=== PATIENT | female | born 1995 | race Caucasian/White ===

== ENCOUNTER → 2020-08-07 09:59 | Outpatient (BNVA) | payer MEDICARE, MEDICAID, SELFPAY | PROVIDERS: Family Provider Nurse Practitioner Family; PCP Nurse Practitioner Family; Visit Provider Registered Nurse | DX: Z34.90 Encounter for supervision of normal pregnancy, unspecified, unspecified trimester (principal) | CPT/HCPCS: 81025 ==

== ENCOUNTER → 2020-08-29 13:21 | Outpatient (BNVA) | payer MEDICARE, MEDICAID, SELFPAY | PROVIDERS: Family Provider Nurse Practitioner Family; PCP Nurse Practitioner Family; Visit Provider Nurse Practitioner Women's Health | DX: Z34.01 Encounter for supervision of normal first pregnancy, first trimester (principal) | CPT/HCPCS: 84315; 84702 ==

== ENCOUNTER → 2020-09-15 08:59 | Outpatient (BNVA) | payer MEDICARE, MEDICAID, SELFPAY | PROVIDERS: Family Provider Nurse Practitioner Family; PCP Nurse Practitioner Family; Visit Provider Obstetrics & Gynecology | DX: O99.211 Obesity complicating pregnancy, first trimester (principal); O99.341 Other mental disorders complicating pregnancy, first trimester; F81.9 Developmental disorder of scholastic skills, unspecified; O21.9 Vomiting of pregnancy, unspecified | CPT/HCPCS: 80307; 84315; 85025; 86592; 86762; 86803; 86850; 86900; 87086; 87340; 87491; 87591 ==

== ENCOUNTER → 2020-09-29 09:02 | Outpatient (BNVA) | payer MEDICARE, MEDICAID, SELFPAY | PROVIDERS: Family Provider Nurse Practitioner Family; PCP Nurse Practitioner Family; Visit Provider Obstetrics & Gynecology | DX: O99.211 Obesity complicating pregnancy, first trimester (principal); O99.341 Other mental disorders complicating pregnancy, first trimester; F81.9 Developmental disorder of scholastic skills, unspecified; Z3A.12 12 weeks gestation of pregnancy | CPT/HCPCS: 84315; 87491; 87591; 88175 ==

== ENCOUNTER → 2020-10-24 13:01 | Outpatient (BNVA) | payer MEDICARE, MEDICAID, SELFPAY | PROVIDERS: Family Provider Nurse Practitioner Family; PCP Registered Nurse; Visit Provider Nurse Practitioner Women's Health | DX: O21.9 Vomiting of pregnancy, unspecified; Z3A.00 Weeks of gestation of pregnancy not specified | CPT/HCPCS: 81000 ==

== ENCOUNTER → 2020-11-24 08:44 | Outpatient (BNVA) | payer MEDICARE, MEDICAID, SELFPAY | PROVIDERS: Family Provider Nurse Practitioner Family; PCP Registered Nurse; Visit Provider Obstetrics & Gynecology | DX: O99.211 Obesity complicating pregnancy, first trimester (principal); E66.9 Obesity, unspecified; O21.9 Vomiting of pregnancy, unspecified; O99.891 Other specified diseases and conditions complicating pregnancy; R82.71 Bacteriuria; Z3A.00 Weeks of gestation of pregnancy not specified | CPT/HCPCS: 81000 ==

== ENCOUNTER → 2020-12-24 08:06 | Outpatient (BNVA) | payer MEDICARE, MEDICAID, SELFPAY | PROVIDERS: Family Provider Nurse Practitioner Family; PCP Registered Nurse; Visit Provider Nurse Practitioner Women's Health | DX: Z34.80 Encounter for supervision of other normal pregnancy, unspecified trimester (principal); R82.71 Bacteriuria | CPT/HCPCS: 81000; 87077; 87086; 87184 ==

== ENCOUNTER → 2021-01-22 11:59 | Outpatient (BNVA) | payer MEDICARE, MEDICAID, SELFPAY | PROVIDERS: Family Provider Nurse Practitioner Family; PCP Registered Nurse; Visit Provider Obstetrics & Gynecology | DX: Z34.80 Encounter for supervision of other normal pregnancy, unspecified trimester (principal) | CPT/HCPCS: 81000; 82950; 85025 ==

== ENCOUNTER → 2021-01-28 08:05 | Outpatient (BNVA) | payer MEDICARE, MEDICAID, SELFPAY | PROVIDERS: Family Provider Nurse Practitioner Family; PCP Registered Nurse; Visit Provider Obstetrics & Gynecology | DX: Z34.01 Encounter for supervision of normal first pregnancy, first trimester (principal) | CPT/HCPCS: 82951; 82952 ==

== ENCOUNTER → 2021-01-30 07:49 | Outpatient (BNVA) | payer MEDICARE, MEDICAID, SELFPAY | PROVIDERS: Family Provider Nurse Practitioner Family; PCP Registered Nurse; Visit Provider Obstetrics & Gynecology | DX: O24.419 Gestational diabetes mellitus in pregnancy, unspecified control (principal); O99.213 Obesity complicating pregnancy, third trimester; O21.9 Vomiting of pregnancy, unspecified; O99.891 Other specified diseases and conditions complicating pregnancy; R82.71 Bacteriuria; Z3A.30 30 weeks gestation of pregnancy | CPT/HCPCS: 81000; 87077; 87086; 87184 ==

== ENCOUNTER → 2021-02-05 09:54 | Outpatient (BNVA) | payer MEDICARE, MEDICAID, SELFPAY | PROVIDERS: Family Provider Nurse Practitioner Family; PCP Registered Nurse; Visit Provider Obstetrics & Gynecology | DX: Z34.80 Encounter for supervision of other normal pregnancy, unspecified trimester (principal) | CPT/HCPCS: 81000 ==

== ENCOUNTER → 2021-02-11 14:17 | Outpatient (BNVA) | payer MEDICARE, MEDICAID, SELFPAY | PROVIDERS: Family Provider Nurse Practitioner Family; PCP Registered Nurse; Visit Provider Obstetrics & Gynecology | DX: Z34.80 Encounter for supervision of other normal pregnancy, unspecified trimester (principal); R39.9 Unspecified symptoms and signs involving the genitourinary system | CPT/HCPCS: 81000; 87077; 87086; 87184 ==

== ENCOUNTER → 2021-02-16 15:05 | Outpatient (BNVA) | payer MEDICARE, MEDICAID, SELFPAY | PROVIDERS: Family Provider Nurse Practitioner Family; PCP Registered Nurse; Visit Provider Obstetrics & Gynecology | DX: O24.419 Gestational diabetes mellitus in pregnancy, unspecified control (principal) | CPT/HCPCS: 36416; 82962 ==

== ENCOUNTER → 2021-02-17 00:01 | Outpatient (BNVA) | payer MEDICARE, MEDICAID, SELFPAY | PROVIDERS: Family Provider Nurse Practitioner Family; PCP Registered Nurse; Visit Provider Registered Nurse | DX: L02.91 Cutaneous abscess, unspecified (principal); L02.31 Cutaneous abscess of buttock | CPT/HCPCS: 87070; 87075; 87077; 87184; 87205 ==

== ENCOUNTER → 2021-02-19 14:46 | Outpatient (BNVA) | payer MEDICARE, MEDICAID, SELFPAY | PROVIDERS: Family Provider Nurse Practitioner Family; PCP Registered Nurse; Visit Provider Obstetrics & Gynecology | DX: Z34.80 Encounter for supervision of other normal pregnancy, unspecified trimester (principal) | CPT/HCPCS: 81000 ==

== ENCOUNTER 2021-02-26 11:34 | Outpatient (CLI) | payer MEDICARE, MEDICAID, SELFPAY ==
--- NOTE | 2021-02-26 12:00 | US_ITS ---
WS: [id number] ULTRASOUND OB LIMITED TECHNIQUE: Limited ultrasound examination of the fetus. CLINICAL INFORMATION: O24.419 - Gestational diabetes mellitus in , uns... COMPARISON: February 19, 2021 FINDINGS: Cervix measures 3.4 cm Single interuterine gestation. presentation is vertex Placental location is anterior. Placenta grade: 1 heart rate 133 BPM. Normal RANDOLPH 14.1 cm Biophysical profile 8 out of 8. breathin movement: 2 tone: 2 Amniotic fluid: 2 US/US OB F/U w BPP wo NST IMPRESSION: 1. Normal biophysical profile 8 out of 8 2. Cervix is closed measuring 3.4 cm
== END 2021-02-26 11:35 | disposition home or self-care (01) ==
LOC: RAD 11:44
PROVIDERS: PCP Registered Nurse; Visit Provider Obstetrics & Gynecology
DX: O24.419 Gestational diabetes mellitus in pregnancy, unspecified control (principal)
CPT/HCPCS: 36416; 76816; 76819; 81000; 82962

== ENCOUNTER → 2021-03-05 15:27 | Outpatient (BNVA) | payer MEDICARE, MEDICAID, SELFPAY | PROVIDERS: PCP Registered Nurse; Visit Provider Obstetrics & Gynecology | DX: O24.419 Gestational diabetes mellitus in pregnancy, unspecified control (principal) | CPT/HCPCS: 36416; 81000; 82962 ==

== ENCOUNTER 2021-03-12 14:57 | Outpatient (CLI) | payer MEDICARE, MEDICAID, SELFPAY ==
[2021-03-12 14:57] VITALS: BMI 39.1
[2021-03-12 15:16] VITALS: BP 125/87; PULSE 80; RESP 16; TEMP 36.4
== END 2021-03-12 15:55 | disposition home or self-care (01) ==
LOC: OPOB 15:01 → OBGYN 15:02
PROVIDERS: PCP Registered Nurse; Visit Provider Obstetrics & Gynecology
DX: O24.419 Gestational diabetes mellitus in pregnancy, unspecified control (principal); Z3A.00 Weeks of gestation of pregnancy not specified
CPT/HCPCS: 36416; 59025; 81000; 82962; 87081

== ENCOUNTER → 2021-03-19 13:12 | Outpatient (BNVA) | payer MEDICARE, MEDICAID, SELFPAY | PROVIDERS: PCP Registered Nurse; Visit Provider Obstetrics & Gynecology | DX: O24.419 Gestational diabetes mellitus in pregnancy, unspecified control (principal); O99.211 Obesity complicating pregnancy, first trimester; O99.891 Other specified diseases and conditions complicating pregnancy | CPT/HCPCS: 36416; 81000; 82962 ==

== ENCOUNTER → 2021-03-23 11:23 | Outpatient (BNVA) | payer MEDICARE, MEDICAID, SELFPAY | PROVIDERS: PCP Registered Nurse; Visit Provider Obstetrics & Gynecology | DX: Z34.01 Encounter for supervision of normal first pregnancy, first trimester (principal); Z20.822 Contact with and (suspected) exposure to COVID-19 | CPT/HCPCS: 87635 ==

== ENCOUNTER → 2021-03-26 13:10 | Outpatient (BNVA) | payer MEDICARE, MEDICAID, SELFPAY | PROVIDERS: PCP Registered Nurse; Visit Provider Obstetrics & Gynecology | DX: O24.419 Gestational diabetes mellitus in pregnancy, unspecified control (principal); Z3A.00 Weeks of gestation of pregnancy not specified | CPT/HCPCS: 81000 ==

== ENCOUNTER 2021-03-27 13:52 | Inpatient (IN) | payer MEDICARE, MEDICAID, SELFPAY ==
[2021-03-27] VITALS (15 sets, daily range): BP systolic 93–128; BP diastolic 60–78; PULSE 74–92; RESP 16–17; TEMP 35.8–37; BMI 40.2
[2021-03-27] MEDS: miSOPROStol 100 mcg tablet 25 MCG VAGINAL ×3 (14:35→23:05)
[2021-03-27 15:07] LABS: Basophils % 0.2 %; Eosinophils # 0.1 10^3/uL (0.0-0.8); Eosinophils % 0.7 %; Hematocrit 33.5 % (37.0-47.0); Hemoglobin 10.7 g/dL (11.5-15.3); Lymphocytes # 2.6 10^3/uL (0.8-4.8); Lymphocytes % 29.8 %; Mean Corpuscular HGB Conc 31.9 g/dL (30.0-36.0); Mean Corpuscular Hemoglobin 27.9 pg (28.0-34.0); Mean Corpuscular Volume 87.5 fl (81-99); Mean Platelet Volume 10.4 fL (7.4-10.4); Monocytes # 0.7 10^3/uL (0.2-0.9); Monocytes % 8.3 %; Neutrophils # 5.24 10^3/uL (1.8-7.7); Neutrophils % 60.3 %; Nucleated Red Blood Cells % 0 %; Platelet Count 241 10^3/cmm (130-400); Red Blood Count 3.83 10^6/uL (4.1-5.3); Red Cell Distribution Width 14.1 % (12.1-15.1); White Blood Count 8.7 10^3/uL (4.0-10.0)
[2021-03-27 15:20] LABS: Amphetamines Screen Urine Negative (Negative); Barbiturates Screen Urine Negative (Negative); Benzodiazepines Screen Urine Negative (Negative); Cocaine Screen Urine Negative (Negative); Opiate Screen Urine Negative (Negative); PCP Screen Urine Negative (Negative); THC Screen Urine Negative (Negative)
[2021-03-27 15:30] LABS: Glucose Point of Care 123 mg/dL (70-110)
[2021-03-27 16:44] LABS: Glucose Point of Care 127 mg/dL (70-110)
[2021-03-27 17:48] LABS: Glucose Point of Care 104 mg/dL (70-110)
[2021-03-27 18:46] LABS: Glucose Point of Care 96 mg/dL (70-110)
--- NOTE | 2021-03-27 19:25 | PM.OPHPUD ---
Labor & Delivery H&P Update Date of Procedure: March 27, 2021 Date H&P Performed: 03/26/21 H&P update information: I have reviewed H&P completed within last 30 days, I have examined patient prior to procedure and No changes to prior documentation Changes to previous documentation: The patient is here for labor induction. She has not had any cervical change. Admission Diagnosis: iup at 38 weeks. induction for poorly controlled gestational diabetes. Related Problem List Diagnoses (1) Gestational diabetes: (2) Bacteriuria during : (3) Obesity affecting : (4) Learning disability:
[2021-03-27 19:43] LABS: Glucose Point of Care 121 mg/dL (70-110)
[2021-03-27 20:42] LABS: Glucose Point of Care 98 mg/dL (70-110)
[2021-03-27 22:03] LABS: Glucose Point of Care 102 mg/dL (70-110)
[2021-03-27 23:16] LABS: Glucose Point of Care 107 mg/dL (70-110)
[2021-03-28] VITALS (40 sets, daily range): BP systolic 90–132; BP diastolic 50–90; PULSE 56–90; RESP 16; TEMP 36.6–36.8
[2021-03-28] MEDS: miSOPROStol 100 mcg tablet 25 MCG VAGINAL (03:13)
[2021-03-28 03:32] LABS: Glucose Point of Care 106 mg/dL (70-110)
[2021-03-28 03:59] LABS: Glucose Point of Care 105 mg/dL (70-110)
--- NOTE | 2021-03-28 07:24 | P.PN_ITS ---
Vitals/I&O/Wt Last Vital Signs Temp 98.0 F 03/29/21 04:52 Pulse 62 03/29/21 09:20 Resp 16 03/28/21 17:09 BP 103/59 03/29/21 09:20 03/28/21 03/29/21 03/29/21 22:59 06:59 14:59 Intake Total 1066.783 / 2082.066 1012.700 / 3094.766 Balance 1066.783 / 2082.066 1012.700 / 3094.766 Weight last 48 hrs Weight 213 lb Physical Exam Narrative: EXAM NARRATIVE: The patient has had four doses of cytotec overnight. She is having breakfast and then pitocin will be started. Const: COMMON NORMALS: no acute distress, patient oriented x3, no limitations, alert and well nourished GENERAL APPEARANCE: cooperative, comfortable, well kempt and well developed ORIENTATION/CONSCIOUSNESS: Yes awake, Yes oriented to person, Yes oriented to place and Yes oriented to time Resp: COMMON NORMALS: normal respiratory effort EFFORT & INSPECTION: Yes able to speak in complete sentences GI: COMMON NORMALS: Soft to palpation and non-tender PALPATION: Yes Soft to palpation Extremity: COMMON NORMALS: no calf tenderness Neuro: COMMON NORMALS: patient oriented x3 SENSORIUM/ORIENTATION: Yes alert, Yes oriented to person, Yes oriented to place and Yes oriented to time Psych: APPEARANCE: Yes well kempt Data : 03/27/21 14:30 A&P Assessment and plan (1) Gestational diabetes: induction for uncontrolled gestational diabetes plan pitocin induction today anticipate Status: Acute (2) Bacteriuria during : Status: Acute (3) Supervision of normal : Status: Acute Qualifiers: Normal : normal first Trimester: first trimester Qualified Code(s): Z34.01 - Encounter for supervision of normal first , first trimester (4) Obesity affecting : Status: Acute Qualifiers: Trimester: first trimester Qualified Code(s): O99.211 - Obesity complicating , first trimester (5) Learning disability: Status: Acute Attestations Medical Necessity Statement*: The patient is here for induction Coding Level of Care Code Acute Respiratory Therapy Assistant for [facility] Fw Diagnoses Gestational diabetes O24.419 Bacteriuria during O99.891; R82.71 Supervision of normal Z34.01 Normal : normal first Trimester: first trimester Obesity affecting O99.211 Trimester: first trimester Learning disability F81.9
[2021-03-28 07:33] LABS: Glucose Point of Care 114 mg/dL (70-110)
[2021-03-28] MEDS: lactated ringers 1,000 ML 125 ML (08:11)
[2021-03-28] MEDS: dextrose 5%-lactated ringers 1,000 ML 125 ML IV ×2 (10:12→18:15)
[2021-03-28] MEDS: oxytocin 30 UNIT/500 ML BAG IV (10:58)
[2021-03-28 11:37] LABS: Glucose Point of Care 121 mg/dL (70-110)
[2021-03-28 15:56] LABS: Glucose Point of Care 112 mg/dL (70-110)
[2021-03-28 19:13] LABS: Glucose Point of Care 115 mg/dL (70-110)
[2021-03-29] VITALS (100 sets, daily range): BP systolic 83–143; BP diastolic 45–104; PULSE 49–146; RESP 16–18; TEMP 36.7–36.9; O2SAT 87–100
[2021-03-29 00:16] LABS: Glucose Point of Care 127 mg/dL (70-110)
[2021-03-29] MEDS: dextrose 5%-lactated ringers 1,000 ML 125 ML IV ×2 (02:22→13:35)
[2021-03-29 04:01] LABS: Glucose Point of Care 120 mg/dL (70-110)
[2021-03-29 08:04] LABS: Glucose Point of Care 119 mg/dL (70-110)
--- NOTE | 2021-03-29 09:30 | PM.PN ---
Vitals/I&O/Wt Last Vital Signs Temp 98.0 F 03/29/21 04:52 Pulse 62 03/29/21 09:20 Resp 16 03/28/21 17:09 BP 103/59 03/29/21 09:20 03/28/21 03/29/21 03/29/21 22:59 06:59 14:59 Intake Total 1066.783 / 2082.066 1012.700 / 3094.766 Balance 1066.783 / 2082.066 1012.700 / 3094.766 Weight last 48 hrs Weight 213 lb Physical Exam Narrative: EXAM NARRATIVE: The patient has had a rough 24 hours. The baby will have minimal variability for extended periods. Oxygen will resolve this. The patient has had uncontrolled diabetes. We are now controlling her blood sugars. The baby is not used to normal blood sugars. D5LR was started and blood sugars continued to be monitored. The baby had had a normal strip since. Abruptly, overnight, the tracing had minimal variability. Oxygen was placed, but it didn't resolve. The pitocin was stopped and the strip improved. Plan is for AROM and if baby cannot tolerated this, perform a . We have been at this for about 48 hours and there has been minimal cervical change. status now is overall very reassuring. Const: COMMON NORMALS: no acute distress, patient oriented x3, no limitations, alert and well nourished GENERAL APPEARANCE: cooperative, comfortable, well kempt and well developed ORIENTATION/CONSCIOUSNESS: Yes awake, Yes oriented to person, Yes oriented to place and Yes oriented to time Resp: COMMON NORMALS: normal respiratory effort EFFORT & INSPECTION: Yes able to speak in complete sentences GI: COMMON NORMALS: Soft to palpation and non-tender PALPATION: Yes Soft to palpation Extremity: COMMON NORMALS: no calf tenderness Neuro: COMMON NORMALS: patient oriented x3 SENSORIUM/ORIENTATION: Yes alert, Yes oriented to person, Yes oriented to place and Yes oriented to time Psych: APPEARANCE: Yes well kempt Data : 03/27/21 14:30 A&P Assessment and plan (1) Gestational diabetes: plan AROM will monitor closely. if any further evidence of intolerance of labor, will perform a . 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
[2021-03-29] MEDS: lactated ringers 1,000 ML 999 ML IV ×2 (09:50→10:50)
--- NOTE | 2021-03-29 10:15 | ANES.PREANE2 ---
Pre-Anesthetic Assessment Pre-Anesthetic Assessment: Height/Weight: Height 1.55 m Weight 96.615 kg Temp Pulse Resp BP 98.0 F 75 16 134/66 03/29/21 04:52 03/29/21 10:05 03/28/21 17:09 03/29/21 10:05 Preop Diagnosis: labor pain Proposed Procedure: epidural Was Beta Ted taken within 24 hours: N/A Was Clonidine taken within 24 hours: N/A Social: Social History: No alcohol and No tobacco Exam: Pre-Anes Outpt Exam: alert, oriented x 3, clear to auscultation bilaterally and regular rate & rhythm Airway: Submandibular: WNL Cervical ROM: WNL MP: 2 Dentition: Full Pulmonary: Pulmonary: None reported CV/HEM: CV/HEM: Anemia : : None reported Hepatic: Hepatic: None reported GI: GI: None reported Metabolic: Metabolic: DM (gestational) and Morbid obesity Musc/skel: Musc/skel: None reported Neuropsych: Neuropsych: Depression Anesthetic Plan: ASA status: 2 Anesthesia: Regional (specify below) Meds/Allergies Current Medications: Current Medications Generic Name Dose Route Start Last Admin Trade Name Freq PRN Reason Stop Dose Admin Lactated Ringer's 1,000 mls @ 125 m ls/hr 03/28/21 08:15 03/28/21 17:23 Lactated Ringers IV Not Given .Q8H JONATHAN Dextrose/Lactated Ringer's 1,000 mls @ 125 m ls/hr 03/28/21 10:10 03/29/21 02:22 Dextrose 5%-Lact ated Ringers IV 125 mls/hr .Q8H PRN Administration per label comment s Oxytocin 30 unit in 500 ml s @ 1 mls/hr 03/28/21 11:00 03/29/21 05:40 Pitocin IV 0 milliunit/min .Q24H JONATHAN 0 mls/hr Titration Protocol 1 MILLIUNIT/MIN PFSH Anesthesia PFSH: Medical History ADHD Depression Surgical History Hx of appendectomy (~2012) Family History Mother Diabetes Hypertension Grandmother Breast cancer Maternal--dx age unknown Grandmother No problems noted. Grandfather Heart disease Maternal Denies family history of Colon cancer Ovarian cancer Hypercholesteremia Uterine cancer Thyroid disease Stroke Social History Smoking and tobacco status: never smoked Alcohol intake: never Female Reproductive History: : 1 Data Anesthesia CBC & Chem 7: 03/27/21 14:30 Other Labs: Laboratory Results - last 48 hr 03/27/21 03/27/21 03/27/21 14:00 14:30 15:26 WBC 8.7 RBC 3.83 L Hgb 10.7 L Hct 33.5 L MCV 87.5 MCH 27.9 L MCHC 31.9 RDW 14.1 Plt Count 241 MPV 10.4 Neut % (Auto) 60.3 Lymph % (Auto) 29.8 [place] % (Auto) 8.3 Eos % (Auto) 0.7 Baso % (Auto) 0.2 Neut # (Auto) 5.24 Lymph # (Auto) 2.6 [place] # (Auto) 0.7 Eos # (Auto) 0.1 Baso # (Auto) 0.0 Nucleated RBC % (auto) 0 Nucleated RBCs # 0.0 POC Glucose 123 H Urine Opiates Screen Negative Ur Barbiturates Screen Negative Ur Phencyclidine Scrn Negative Ur Amphetamines Screen Negative U Benzodiazepines Scrn Negative Urine Cocaine Screen Negative U Marijuana (THC) Screen Negative 03/27/21 03/27/21 03/27/21 16:39 17:44 18:35 WBC RBC Hgb Hct MCV MCH MCHC RDW Plt Count MPV Neut % (Auto) Lymph % (Auto) [place] % (Auto) Eos % (Auto) Baso % (Auto) Neut # (Auto) Lymph # (Auto) [place] # (Auto) Eos # (Auto) Baso # (Auto) Nucleated RBC % (auto) Nucleated RBCs # POC Glucose 127 H 104 96 Urine Opiates Screen Ur Barbiturates Screen Ur Phencyclidine Scrn Ur Amphetamines Screen U Benzodiazepines Scrn Urine Cocaine Screen U Marijuana (THC) Screen 03/27/21 03/27/21 03/27/21 19:39 20:39 21:53 WBC RBC Hgb Hct MCV MCH MCHC RDW Plt Count MPV Neut % (Auto) Lymph % (Auto) [place] % (Auto) Eos % (Auto) Baso % (Auto) Neut # (Auto) Lymph # (Auto) [place] # (Auto) Eos # (Auto) Baso # (Auto) Nucleated RBC % (auto) Nucleated RBCs # POC Glucose 121 H 98 102 Urine Opiates Screen Ur Barbiturates Screen Ur Phencyclidine Scrn Ur Amphetamines Screen U Benzodiazepines Scrn Urine Cocaine Screen U Marijuana (THC) Screen 03/27/21 03/27/21 03/28/21 23:02 23:47 03:55 WBC RBC Hgb Hct MCV MCH MCHC RDW Plt Count MPV Neut % (Auto) Lymph % (Auto) [place] % (Auto) Eos % (Auto) Baso % (Auto) Neut # (Auto) Lymph # (Auto) [place] # (Auto) Eos # (Auto) Baso # (Auto) Nucleated RBC % (auto) Nucleated RBCs # POC Glucose 107 106 105 Urine Opiates Screen Ur Barbiturates Screen Ur Phencyclidine Scrn Ur Amphetamines Screen U Benzodiazepines Scrn Urine Cocaine Screen U Marijuana (THC) Screen 03/28/21 03/28/21 03/28/21 07:30 11:32 15:53 WBC RBC Hgb Hct MCV MCH MCHC RDW Plt Count MPV Neut % (Auto) Lymph % (Auto) [place] % (Auto) Eos % (Auto) Baso % (Auto) Neut # (Auto) Lymph # (Auto) [place] # (Auto) Eos # (Auto) Baso # (Auto) Nucleated RBC % (auto) Nucleated RBCs # POC Glucose 114 H 121 H 112 H Urine Opiates Screen Ur Barbiturates Screen Ur Phencyclidine Scrn Ur Amphetamines Screen U Benzodiazepines Scrn Urine Cocaine Screen U Marijuana (THC) Screen 03/28/21 03/29/21 03/29/21 19:06 00:06 03:57 WBC RBC Hgb Hct MCV MCH MCHC RDW Plt Count MPV Neut % (Auto) Lymph % (Auto) [place] % (Auto) Eos % (Auto) Baso % (Auto) Neut # (Auto) Lymph # (Auto) [place] # (Auto) Eos # (Auto) Baso # (Auto) Nucleated RBC % (auto) Nucleated RBCs # POC Glucose 115 H 127 H 120 H Urine Opiates Screen Ur Barbiturates Screen Ur Phencyclidine Scrn Ur Amphetamines Screen U Benzodiazepines Scrn Urine Cocaine Screen U Marijuana (THC) Screen 03/29/21 08:01 WBC RBC Hgb Hct MCV MCH MCHC RDW Plt Count MPV Neut % (Auto) Lymph % (Auto) [place] % (Auto) Eos % (Auto) Baso % (Auto) Neut # (Auto) Lymph # (Auto) [place] # (Auto) Eos # (Auto) Baso # (Auto) Nucleated RBC % (auto) Nucleated RBCs # POC Glucose 119 H Urine Opiates Screen Ur Barbiturates Screen Ur Phencyclidine Scrn Ur Amphetamines Screen U Benzodiazepines Scrn Urine Cocaine Screen U Marijuana (THC) Screen Cardiac Studies: No Data to Display
--- NOTE | 2021-03-29 10:41 | ANES.PROC ---
Anesthesia Procedures Procedure/Date: 03/29/21 epidural Procedure Narrative: epidural complete, bolus given, epidural pump initiated with [employer] education given, vitals taken during procedure using OBIX system and satisfactory throughout, patient admits to decrease pain, report of procedure to OB RN Epidural: Time Out Performed: Yes Consents Signed: Procedure Consent Consent: requested by attending/covering physician, from patient, risks and benefits reviewed and patient agrees to proceed Lumbar Level: L3-L4 Epidural position: sitting Epidural procedure: sterile prep of area, 1% lidocaine to numb the area (3 mL), 18 g needle, negative for paresthesia passed, neg for paresthesia, test dose given, 1.5% xylocaine 1:200k epi (5 mL), 0.2% Ropivacaine bolus ml (5 mL), placed PCEA, no systemic response, sterile dressing applied, L.U.D. no apparent complications and 0.2% Ropiavacaine @ mls/hr (13 mL/hr)
[2021-03-29] MEDS: oxytocin 30 UNIT/500 ML BAG IV (11:19)
[2021-03-29 12:21] LABS: Glucose Point of Care 89 mg/dL (70-110)
[2021-03-29 17:13] LABS: Glucose Point of Care 130 mg/dL (70-110)
--- NOTE | 2021-03-29 22:16 | PM.DELIVERY ---
Delivery Note: Date of delivery: March 29, 2021 Pre-delivery diagnoses: iup at 38 weeks 2 days, poorly controlled gestational diabetes Post-delivery diagnoses: same Procedure: Op report anesthesia: Epidural Delivering Physician: glen Estimated blood loss (mL): 25 Findings: term male in the cephalic presentation Pre-Delivery Course: The patient was admitted for induction at term for poorly controlled gestational diabetes. She had 4 doses of cytotec and then pitocin was started. She had AROM of clear fluid. She received an epidural for pain control. She had complete cervical dilation and then started having meconium stained fluid when she began pushing. Delivery: The patient had complete cervical dilation and began to push. The head delivered in the DOREEN position over an intact perineum under epidural anesthesia. There was a compound right arm. The nose and mouth were bulb suctioned. The shoulders and body delivered atraumatically. The baby was placed onto the mother's abdomen. The cord was clamped and cut. Cord blood was obtained. The placenta delivered spontaneously. It was inspected and found to be intact. Inspection of the perineum revealed a small second degree midline laceration that was repaired in the usual fashion. Estimated blood loss 25ml. Apgars on baby were 8 at 1 minute and 9 at 5 minutes. Weight of baby is 6 pounds, 3 oz. Mother and baby were stable post delivery. 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
[2021-03-29] MEDS: benzocaine-menthol 78 gm Canister 1 SPRAY TOPICAL (23:55)
[2021-03-29] MEDS: lanolin oint 7 gm 1 APPLIC TOPICAL (23:55)
[2021-03-30] VITALS (8 sets, daily range): BP systolic 108–125; BP diastolic 65–84; PULSE 81–105; RESP 15–18; TEMP 36.7–36.9; O2SAT 98
[2021-03-30] MEDS: alum-mag-hydroxide-sime 30 mL UDC PO (01:28)
--- NOTE | 2021-03-30 07:00 | PC.NURSE ---
Call light answered at this time. Patient was up in room starting to get back into bed. Patient stated that her chest area hurt when she is up out of bed. Vital signs obtained and assessment completed. no abnormalities noted. Dr. Esteban to be notified.
--- NOTE | 2021-03-30 07:53 | PM.PN ---
Vitals/I&O/Wt Last Vital Signs Temp 98.1 F 03/30/21 00:30 Pulse 94 03/30/21 05:55 Resp 16 03/30/21 05:55 BP 118/66 03/30/21 05:55 Pulse Ox 100 03/29/21 11:17 03/29/21 03/30/21 03/30/21 22:59 06:59 14:59 Intake Total 568.167 / 3594.418 1305.582 / 4900.000 Output Total 550 / 550 Balance 18.167 / 3044.418 1305.582 / 4350.000 Physical Exam Narrative: EXAM NARRATIVE: The patient is doing well this morning. No concerns Const: COMMON NORMALS: no acute distress, patient oriented x3, no limitations, alert and well nourished GENERAL APPEARANCE: cooperative, comfortable, well kempt and well developed ORIENTATION/CONSCIOUSNESS: Yes awake, Yes oriented to person, Yes oriented to place and Yes oriented to time Resp: COMMON NORMALS: normal respiratory effort EFFORT & INSPECTION: Yes able to speak in complete sentences GI: COMMON NORMALS: Soft to palpation and non-tender PALPATION: Yes Soft to palpation Extremity: COMMON NORMALS: no calf tenderness Neuro: COMMON NORMALS: patient oriented x3 SENSORIUM/ORIENTATION: Yes alert, Yes oriented to person, Yes oriented to place and Yes oriented to time Psych: APPEARANCE: Yes well kempt Urinary Catheter Management^: Serrato: Cath Placed During This Visit: yes, but has since been removed by the nurse Reason for Continuing Indwelling Catheter: Decision to DC Catheter Urinary Catheter Date of Insertion: 03/29/21 Urinary Catheter Time of Insertion: 11:05 Date Urinary Catheter Removed: 03/29/21 Time Urinary Catheter Discontinued: 20:45 Data : 03/30/21 12:00 A&P Assessment and plan (1) state: Status: Acute Attestations Medical Necessity Statement*: The patient has already been here over two midnights Coding Level of Care Code Acute Consumer Relations Specialist for [facility] Fwd Diagnoses state Z39.2
[2021-03-30] MEDS: prenatal vitamin Capsule 1 CAP PO (09:51)
[2021-03-30] MEDS: ibuprofen 800 mg tablet PO ×3 (09:51→21:02)
[2021-03-30] MEDS: docusate sodium 100 mg Capsule PO ×2 (09:51→18:11)
--- NOTE | 2021-03-30 12:25 | PC.NURSE ---
DFS DFS visited for resource check on the parents and baby. The DFS worker stated that the baby was okay to go home when discharged. They are setting up in home resources and they will be performing an in home visit Tuesday.
[2021-03-30 12:51] LABS: Hematocrit 29.2 % (37.0-47.0); Hemoglobin 9.4 g/dL (11.5-15.3); Mean Corpuscular HGB Conc 32.2 g/dL (30.0-36.0); Mean Corpuscular Hemoglobin 28.2 pg (28.0-34.0); Mean Corpuscular Volume 87.7 fl (81-99); Mean Platelet Volume 10.2 fL (7.4-10.4); Platelet Count 221 10^3/cmm (130-400); Red Blood Count 3.33 10^6/uL (4.1-5.3); Red Cell Distribution Width 14.2 % (12.1-15.1); White Blood Count 12.4 10^3/uL (4.0-10.0)
--- NOTE | 2021-03-30 14:33 | ANE.PACU2 ---
Inpatient post-anesthesia follow up: Airway intact: Yes Vital signs: Temperature 98.1 F Pulse Rate 98 Respiratory Rate 17 Blood Pressure 125/84 Pulse Oximetry 98 Oxygen Delivery Me thod Room Air Oxygen Flow Rate 10 Fraction of Inspir ed Oxygen Hydration adequate: Yes Nausea and vomiting: No Pain level: 2 Mental status: Baseline
[2021-03-31 03:52] VITALS: BP 117/79; PULSE 76; RESP 18; TEMP 36.9; O2SAT 97
--- NOTE | 2021-03-31 08:50 | PM.DCS ---
Discharge Providers Date of Admission: 03/27/21 13:52 Date of Discharge: March 31, 2021 Attending Provider at Admission: Grecia Esteban MD Attending Provider at Discharge: Grecia Esteban MD Primary Care Provider: ALISON Melendez Diagnoses at Discharge Discharge Diagnosis (1) state: Status: Acute Reason for Visit Reason for Visit: IUP Hospital Course Hospital Course The patient was admitted for induction at term for poorly controlled gestational diabetes. She had spontaneous delivery of a term male . She did well and was ready for discharge on day #2. The baby began showing symptoms of possible cardiac issues and low oxygenation. He was transferred to the NICU on the day of discharge. Physical Exam Narrative: EXAM NARRATIVE: The patient is comfortable in bed. She denies any depression today. pain is well controlled. she is ambulating and tolerating a regular diet. Const: COMMON NORMALS: no acute distress, patient oriented x3, alert and well nourished GENERAL APPEARANCE: cooperative, comfortable, well kempt and well developed ORIENTATION/CONSCIOUSNESS: Yes awake, Yes oriented to person, Yes oriented to place and Yes oriented to time Resp: COMMON NORMALS: normal respiratory effort EFFORT & INSPECTION: Yes able to speak in complete sentences GI: COMMON NORMALS: Soft to palpation and non-tender PALPATION: Yes Soft to palpation Extremity: COMMON NORMALS: no calf tenderness Neuro: COMMON NORMALS: patient oriented x3 SENSORIUM/ORIENTATION: Yes alert, Yes oriented to person, Yes oriented to place and Yes oriented to time Psych: APPEARANCE: Yes well kempt Urinary Catheter Management^: Serrato: Cath Placed During This Visit: yes, but has since been removed by the nurse Reason for Continuing Indwelling Catheter: Decision to DC Catheter Urinary Catheter Date of Insertion: 03/29/21 Urinary Catheter Time of Insertion: 11:05 Date Urinary Catheter Removed: 03/29/21 Time Urinary Catheter Discontinued: 20:45 Discharge Data Data Completed and Pending: Labs from last 24 hours 03/30/21 12:00 WBC 12.4 H RBC 3.33 L Hgb 9.4 L Hct 29.2 L MCV 87.7 MCH 28.2 MCHC 32.2 RDW 14.2 Plt Count 221 MPV 10.2 Vitals: Last Vital Signs Temp 98.4 F 03/31/21 03:52 Pulse 76 03/31/21 03:52 Resp 18 03/31/21 03:52 BP 117/79 03/31/21 03:52 Pulse Ox 97 03/31/21 03:52 Discharge Plan Discharge Patient Disposition: Home Condition: Stable Prescriptions: Continued prenat.vits,brielle,[id number] Tablet 1 tab PO DAILY RF: 0 ferrous sulfate 325 mg (65 mg iron) tablet 325 mg PO DAILY RF: 0 (DME) blood-glucose meter [Blood Glucose Monitoring] Kit See Rx Instructions .Route Qty: 1 RF: 0 (DME) lancets-blood glucose strips 30 gauge combo pack See Rx Instructions .Route Qty: 200 RF: 6 Discharge Orders: Discharge Order (Routine); Ordered 03/31/21 Ordered By: Grecia Esteban Referrals: Grecia Esteban MD [Physician] - 04/13/21 8:30 am (Your 2 week post visit is scheduled for 04/13/21 @8:30. Your 6 week post- visit is scheduled for 05/11/21 @9:30. ) Patient Instructions: Depression (DC), Preeclampsia and Eclampsia After Delivery (GEN), OB Discharge Report, OB Food/Drug Interaction Guide, Opioid Safety, OB Home Care, OB Vaginal Deliveries - [facility], Abnormal Bleeding Discharge Attestations Time Spent in Discharge Care*: less than 30 min Quality Metrics Clinical Quality Measures During this hospital stay, did patient experience: None Coding Level of Care Code Acute [facility] FW DC note Diagnoses state Z39.2
[2021-03-31 09:50] VITALS: BP 136/84; PULSE 94; RESP 16; TEMP 36.8; O2SAT 98
[2021-03-31 10:15] VITALS: BP 136/84; PULSE 94; RESP 16; TEMP 36.8; O2SAT 98
== END 2021-03-31 10:15 | disposition home or self-care (01) | DRG 807 ==
PROVIDERS: Admitting Provider Obstetrics & Gynecology; PCP Registered Nurse; Visit Provider Obstetrics & Gynecology
DX: O99.344 Other mental disorders complicating childbirth (principal); Z37.0 Single live birth; F32.A Depression, unspecified; O99.214 Obesity complicating childbirth; O70.1 Second degree perineal laceration during delivery; O24.429 Gestational diabetes mellitus in childbirth, unspecified control; Z3A.38 38 weeks gestation of pregnancy; O75.89 Other specified complications of labor and delivery; F90.9 Attention-deficit hyperactivity disorder, unspecified type; O77.0 Labor and delivery complicated by meconium in amniotic fluid
CPT/HCPCS: 36415; 36416; 51702; 59025; 59409; 80306; 81000; 82962; 85025; 85027; J2795

== ENCOUNTER → 2021-09-28 10:02 | Outpatient (BNVA) | payer MEDICARE, MEDICAID, SELFPAY | PROVIDERS: PCP Registered Nurse; Visit Provider Obstetrics & Gynecology | DX: N92.6 Irregular menstruation, unspecified (principal) | CPT/HCPCS: 81025 ==

== ENCOUNTER → 2021-10-02 08:38 | Outpatient (BNVA) | payer MEDICARE, MEDICAID, SELFPAY | PROVIDERS: PCP Registered Nurse; Visit Provider Nurse Practitioner Women's Health | DX: N92.6 Irregular menstruation, unspecified (principal); E66.01 Morbid (severe) obesity due to excess calories; Z68.41 Body mass index [BMI] 40.0-44.9, adult | CPT/HCPCS: 83036; 84702 ==

== ENCOUNTER → 2021-10-22 08:13 | Outpatient (BNVA) | payer MEDICARE, MEDICAID, SELFPAY | PROVIDERS: PCP Registered Nurse; Visit Provider Obstetrics & Gynecology | DX: O99.891 Other specified diseases and conditions complicating pregnancy (principal); R39.9 Unspecified symptoms and signs involving the genitourinary system; O99.341 Other mental disorders complicating pregnancy, first trimester; F32.A Depression, unspecified; Z34.80 Encounter for supervision of other normal pregnancy, unspecified trimester; Z3A.00 Weeks of gestation of pregnancy not specified; Z11.59 Encounter for screening for other viral diseases; Z86.32 Personal history of gestational diabetes | CPT/HCPCS: 81000; 82950; 84443; 85025; 86592; 86762; 86803; 86850; 86900; 87086; 87340; 87491; 87591; 87661; 87806 ==

== ENCOUNTER → 2021-10-29 08:13 | Outpatient (BNVA) | payer MEDICARE, MEDICAID, SELFPAY | PROVIDERS: PCP Registered Nurse; Visit Provider Obstetrics & Gynecology | DX: O09.899 Supervision of other high risk pregnancies, unspecified trimester (principal); Z3A.00 Weeks of gestation of pregnancy not specified | CPT/HCPCS: 82951; 82952 ==

== ENCOUNTER → 2021-11-06 09:19 | Outpatient (BNVA) | payer MEDICARE, MEDICAID, SELFPAY | PROVIDERS: PCP Registered Nurse; Visit Provider Obstetrics & Gynecology | DX: O09.899 Supervision of other high risk pregnancies, unspecified trimester (principal); Z3A.00 Weeks of gestation of pregnancy not specified | CPT/HCPCS: 81000 ==

== ENCOUNTER 2022-08-17 15:38 | Emergency (ER) | payer MEDICARE, MEDICAID, SELFPAY ==
[2022-08-17 15:42] VITALS: BP 127/86; PULSE 74; RESP 16; TEMP 36.7; O2SAT 100; BMI 37.8
[2022-08-17 15:43] VITALS: BP 127/86; PULSE 74; RESP 16; TEMP 36.7; O2SAT 100
--- NOTE | 2022-08-17 16:51 | W.ED.DENTAL ---
HPI - Dental/Oral General: Chief complaint: Dental/Oral Stated complaint: toothache Time Seen by Provider: 08/17/22 15:55 History of Present Illness: Patient is in for left lower jaw dental pain x2 days. She denies any known trauma or injury but does report that she has a cracked tooth on the left lower jaw. She has not seen a dentist. She denies fever or chills. She denies any possibility of . Review of Systems Const: Denies: chills or body aches ENMT: Reports: dental pain Card: Denies: chest pain or palpitations Resp: Denies: dyspnea, productive cough or non-productive cough GI: Denies: abdominal pain, nausea or vomiting : Denies: flank pain or dysuria PFSH ED PFSH: Medical History ADHD Depression History of gestational diabetes No pertinent past medical history negx: htn,thyroid,dvt/pe PCP: [facility] Surgical History Hx of appendectomy (~2012) Family History Mother Diabetes Hypertension Grandmother Breast cancer Maternal--dx age unknown Grandmother No problems noted. Grandfather Heart disease Maternal Denies family history of Colon cancer Ovarian cancer Hypercholesteremia Uterine cancer Thyroid disease Stroke Physical Exam Const: COMMON NORMALS: no acute distress, patient oriented x3 and alert HENMT: TEETH & GINGIVA: Yes caries and Yes poor dentition TEETH & GINGIVA IMAGES: 1. Cracked tooth with surrounding gingival erythema no definitive drainable abscess appreciated Neck/C-Spine: COMMON NORMALS: no JVD Resp: COMMON NORMALS: normal respiratory effort, No use of accessory muscles and clear to auscultation bilaterally AUSCULTATION: clear to auscultation bilaterally Cardio: COMMON NORMALS: no JVD, regular rate, regular rhythm, S1 normal heart sound present and S2 normal heart sound present RATE: regular rate RHYTHM: regular rhythm HEART SOUNDS: S1 normal heart sound present and S2 normal heart sound present Neuro: COMMON NORMALS: patient oriented x3, moves all extremities and no focal motor deficits SENSORIUM/ORIENTATION: Yes alert Course Vital Signs: Vital signs: Vital Signs Temperature 98.1 F 08/17/22 15:43 Pulse Rate 74 08/17/22 15:43 Respiratory Rate 16 08/17/22 15:43 Blood Pressure 127/86 08/17/22 15:43 Pulse Oximetry 100 08/17/22 15:43 Oxygen Delivery Me thod 08/17/22 15:43 MDM - Dental/Oral Medical Decision Making Patient is in today for dental pain. Physical exam findings are consistent with a cracked tooth on the left lower jaw with surrounding gingival erythema no abscess is appreciated. We will start patient on antibiotic medication and advised her that she needs to follow-up with dental DWAINE. Offered her a Toradol injection today to help with pain and she declines. Advised her to utilize warm salt water gargles and warm compresses to help with pain also. Soft diet will also help. Follow-up with primary care provider, follow-up with dental, return to the ER for new or worsening symptoms Discharge Plan Discharge Patient Disposition: Home Clinical Impression: Dental infection Condition: Stable Prescriptions: New amoxicillin 875 mg tablet 875 mg PO BID Qty: 14 0RF No Action trazodone 50 mg tablet 100 mg PO .HS PRN (Reason: insomnia) Qty: 60 1RF Rx Instructions: Take 1-2 tabs at night for insomnia and depression. (DME) Blood Glucose Test Strip See Rx Instructions .Route Qty: 120 4RF Rx Instructions: As directed (DME) blood-glucose meter [Blood Glucose Monitoring] Kit See Rx Instructions .Route Qty: 1 4RF Rx Instructions: As directed (DME) E-Z Ject Lancets 32 gauge misc See Rx Instructions .Route Qty: 120 4RF Rx Instructions: As directed Discharge Orders: Discharge ED (Routine); Ordered 08/17/22 Ordered By: Eunice Greene Referrals: Yoel Butt MD [Primary Care Provider] - Discharge Activity: Increase activity as tolerated Patient Instructions: Dental Abscess (ED) Activity Restrictions/Additional Instructions: Take antibiotics as directed. Use warm salt water gargles and warm compresses to help with pain. You may alternate Tylenol and Motrin. Follow-up with dentist DWAINE. Return to the ER for new or worsening symptoms Coding Level of Care Code ED Clinical Documentation Consultant for Norbert Farris
== END 2022-08-17 17:06 | disposition home or self-care (01) ==
PROVIDERS: Emergency Provider Nurse Practitioner Family; PCP Family Medicine
DX: K08.89 Other specified disorders of teeth and supporting structures (principal)
CPT/HCPCS: 99283

== ENCOUNTER 2023-01-06 17:32 | Emergency (ER) | payer MEDICARE, MEDICAID, SELFPAY ==
[2023-01-06 17:34] VITALS: BP 123/75; PULSE 99; RESP 14; TEMP 36.7; O2SAT 96
--- NOTE | 2023-01-06 17:47 | W.ED.SKABFB ---
HPI - Skin/Abscess/Foreign Bdy General: Chief complaint: Skin/Abscess/Foreign Body Stated complaint: inner thigh rash Time Seen by Provider: 01/06/23 17:45 History of Present Illness: 27-year-old female comes in today with rash that is tender to bilateral inguinal area. Patient noticed the rash last 3 days. Patient reports more tenderness to the rash. Patient appears nontoxic. Patient appears no acute distress. Patient does have a history of obesity and problems with her blood sugar. Patient takes trazodone at night for insomnia. Review of Systems General: Reports: 10 or more systems reviewed and unremarkable except in HPI and below Skin/Breast: Reports: rash and erythema PFSH ED PFSH: Medical History ADHD Depression History of gestational diabetes No pertinent past medical history negx: htn,thyroid,dvt/pe PCP: [facility] Surgical History Hx of appendectomy (~2012) Family History Mother Diabetes Hypertension Grandmother Breast cancer Maternal--dx age unknown Grandmother No problems noted. Grandfather Heart disease Maternal Denies family history of Colon cancer Ovarian cancer Hypercholesteremia Uterine cancer Thyroid disease Stroke Social History Substance/Drug Use: never Do you think of yourself as: Straight/Heterosexual Physical Exam Const: COMMON NORMALS: alert HENMT: COMMON NORMALS: normocephalic HEAD & SCALP: normocephalic MOUTH: Normal oral and palatal mucosa present Neck/C-Spine: COMMON NORMALS: full ROM Resp: COMMON NORMALS: normal respiratory effort Cardio: COMMON NORMALS: regular rate RATE: regular rate Extremity: COMMON NORMALS: full ROM Neuro: SENSORIUM/ORIENTATION: Yes alert Skin: RASHES: rashes noted (Erythematous rash to the inguinal area well-demarcated) Course Vital Signs: Vital signs: Vital Signs Temperature 98.0 F 01/06/23 17:34 Pulse Rate 99 01/06/23 17:34 Respiratory Rate 14 01/06/23 17:34 Blood Pressure 123/75 01/06/23 17:34 Pulse Oximetry 96 01/06/23 17:34 Oxygen Delivery Me thod Room Air 01/06/23 17:34 MDM - Skin/Abscess/Foreign Bdy Medicial Decision Making 27-year-old female comes in today with rash to the inguinal area that she has noticed over the last 2 to 3 days. Patient reports some tenderness of the rash. On exam patient has a erythematous well-demarcated area to the inguinal area increased on the right versus the left. Differential diagnosis includes tinea cruris, intertrigo, cellulitis. No signs of cellulitis is noted. Most likely this is tinea cruris versus intertrigo. We will go ahead and treat with some hydrocortisone due to the tenderness twice a day as needed for discomfort. Patient was instructed to use clotrimazole routinely twice a day for 2 weeks. Try to keep area clean and dry as much as possible. Follow-up with primary care for further instructions. Discharge Plan Discharge Patient Disposition: Home Clinical Impression: Tinea cruris Condition: Stable Prescriptions: New hydrocortisone 2.5 % cream 1 applic topical BID PRN (Reason: skin irritation) Qty: 28.35 0RF clotrimazole 1 % cream 1 applic topical BID 14 Days Qty: 30 0RF No Action trazodone 50 mg tablet 100 mg PO .HS PRN (Reason: insomnia) Qty: 60 1RF Rx Instructions: Take 1-2 tabs at night for insomnia and depression. (DME) Blood Glucose Test Strip See Rx Instructions .Route Qty: 120 4RF Rx Instructions: As directed (DME) blood-glucose meter [Blood Glucose Monitoring] Kit See Rx Instructions .Route Qty: 1 4RF Rx Instructions: As directed (DME) E-Z Ject Lancets 32 gauge misc See Rx Instructions .Route Qty: 120 4RF Rx Instructions: As directed Discharge Orders: Discharge ED (Routine); Ordered 01/06/23 Ordered By: Sunny Montes De Oca Referrals: Yoel Butt MD [Primary Care Provider] - Discharge Diet: Usual diet Discharge Activity: Increase activity as tolerated Patient Instructions: Tinea Cruris Activity Restrictions/Additional Instructions: Apply hydrocortisone cream twice a day to the skin rash for discomfort. Apply clotrimazole cream 2 times a day for 2 weeks. Follow-up with primary care in 2 weeks for recheck of rash. Return to ER for new concerns. Try to keep skin dry as much as possible. Coding Level of Care Code ED Hydrostatic Tester for Norbert Farris
== END 2023-01-06 18:11 | disposition home or self-care (01) ==
PROVIDERS: Emergency Provider Nurse Practitioner Family; PCP Family Medicine
DX: B35.6 Tinea cruris (principal); E66.9 Obesity, unspecified; Z68.37 Body mass index [BMI] 37.0-37.9, adult; Z79.899 Other long term (current) drug therapy
CPT/HCPCS: 99283

== ENCOUNTER 2023-02-24 03:41 | Inpatient (IN) | payer MEDICARE, MEDICAID, SELFPAY ==
[2023-02-24] VITALS (32 sets, daily range): BP systolic 118–156; BP diastolic 59–97; PULSE 51–125; RESP 16–17; TEMP 35.7–36.8; O2SAT 97–100; BMI 37.8
[2023-02-24] MEDS: dextrose 5%-lactated ringers 1,000 ML 125 ML IV (04:37)
[2023-02-24] MEDS: miSOPROStol 200 mcg Tablet 800 MCG PR (04:37)
[2023-02-24] MEDS: oxytocin 30 UNIT/500 ML BAG 600 UNIT IV (04:39)
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
[2023-02-24 06:17] LABS: Amphetamines Screen Urine Negative (Negative); Barbiturates Screen Urine Negative (Negative); Benzodiazepines Screen Urine Negative (Negative); Cocaine Screen Urine Negative (Negative); Opiate Screen Urine Negative (Negative); PCP Screen Urine Negative (Negative); THC Screen Urine Negative (Negative)
[2023-02-24 06:37] LABS: Rubella IgG 35.7 IU/mL (0.0-10.0)
[2023-02-24 06:41] LABS: Hepatitis B Surface Antigen Non-Reactive (Nonreactive)
[2023-02-24 06:45] LABS: HIV 1 & 2 Antigen Non-Reactive (Non-Reactiv)
[2023-02-24 06:46] LABS: HIV 1 & 2 Antibody Non-Reactive (Non-Reactiv)
[2023-02-24 06:49] LABS: Rapid Plasma Reagin Syphilis Nonreactive (Nonreactive)
[2023-02-24] MEDS: acetaminophen 325 mg Tablet 650 MG PO (06:57)
--- NOTE | 2023-02-24 07:44 | PC.NURSE ---
Hotline call made due to no care, no custody of any of the other children, concerns of ability to care for
[2023-02-24] MEDS: ibuprofen 800 mg tablet PO ×3 (08:29→21:02)
[2023-02-24] MEDS: docusate sodium 100 mg Capsule PO ×2 (08:29→21:02)
[2023-02-24] MEDS: prenatal vitamin Capsule 1 CAP PO (08:29)
[2023-02-24 12:47] LABS: Estmated Average Glucose 137; Hemoglobin A1C 6.4 % (4.0-6.0)
[2023-02-24 16:55] LABS: Hematocrit 23.1 % (36-47); Mean Corpuscular HGB Conc 29.9 g/dL (30-55); Mean Corpuscular Hemoglobin 23.1 pg (27-33); Mean Corpuscular Volume 77.3 fl (85-98); Mean Platelet Volume 10.8 fL (7.4-10.4); Platelet Count 174 10^3/cmm (157-399); Red Blood Count 2.99 10^6/uL (3.85-5.65); Red Cell Distribution Width 17.2 % (12.1-15.1); White Blood Count 10.35 10^3/uL (3.29-11.43)
[2023-02-25] MEDS: prenatal vitamin Capsule 1 CAP PO (08:55)
[2023-02-25] MEDS: ibuprofen 800 mg tablet PO (08:55)
[2023-02-25] MEDS: docusate sodium 100 mg Capsule PO (08:55)
--- NOTE | 2023-02-25 10:58 | PM.DELIVERY ---
Delivery Note: Date of delivery: February 24, 2023 Procedure: Normal spontaneous vaginal delivery Pre-Delivery Course: The patient presented to the ER not knowing she was but in active labor, completely dilated. Walk-in patient, no care. Delivery: This is a 27-year-old G3 now P3 who first presented to our ER and was immediately transferred to labor and delivery once she was found to be and completely dilated. Patient states she did not know that she was . She thought it was just baby weight from her last . She states her last period might have been April. When I presented to the room the patient was just beginning to crown. She had a normal spontaneous vaginal delivery of a viable male infant weight 3760 g, Apgars 8 and 8 over an intact perineum. The was suctioned at delivery and placed on the mother's chest. He appeared very puffy and fat, though term. The cord was clamped and cut. The placenta was delivered using fundal pressure and was grossly intact and normal to inspection. There were no lacerations. Mother was doing well after delivery. The infant was transferred to the nursery with respiratory issues. EBL 350 mL History History History 2 Term 1 0 Miscarriages/Ectopic 0 Living Children 1 Coding Level of Care Code Acute Code for Chg Fwd Diagnoses
--- NOTE | 2023-02-25 11:12 | PM.DCS ---
Discharge Providers Date of Admission: 02/24/23 03:57 Date of Discharge: February 25, 2023 Attending Provider at Admission: Fabi Cano MD Attending Provider at Discharge: Fabi Cano MD Primary Care Provider: Yoel Butt MD Diagnoses at Discharge Discharge Diagnosis (1) (normal spontaneous vaginal delivery): Status: Acute (2) No care in current in third trimester: Status: Resolved (3) Anemia: Details from hospital stay: Given her precipitous delivery a predelivery blood count was not able to be obtained. Her 12-hour postdelivery hemoglobin was 6.9. She has not had any more than average vaginal bleeding. Status: Acute (4) History of gestational diabetes in prior , currently : Status: Acute (5) Morbid obesity with BMI of 40.0-44.9, adult: Status: Acute (6) Learning disability: Status: Acute Reason for Visit Reason for Visit: abd / back pain // pt says maybe Hospital Course Hospital Course This is a 27-year-old G3 now P3 who presented not knowing she was but was in active labor. She had a normal spontaneous vaginal delivery of a viable male infant. The infant weighed 3760 g, Apgars were 8 and 8. The appeared very puffy and fat, he had some respiratory issues where he was first weaned off of the CPAP but then required to be placed back on it. At that point he was shipped to the NICU in [place]. Mother did fine . She said that her bleeding was supervisor sterile processing today and was like a light period. She is interested in control. She has had the Depo shot in the past. She is agreeable to getting this prior to discharge. She will then follow-up in clinic with me and we will discuss other more long-term options. Her spouse is very interested in her getting the IUD. We do not know what her predelivery hemoglobin would have been. Postdelivery she is 6.9. She is not having any lightheadedness or low blood pressures. I encouraged her to take the iron supplement twice daily upon discharge. I also encouraged prevention of as she has had 3 [id number] deliveries and has low hemoglobin. I discussed the risks and benefits of waiting at least 15 months between pregnancies. Physical Exam Narrative: Alert and oriented, sitting up in bed, heart regular rate and rhythm, lungs clear to auscultation bilaterally, abdomen is soft and nontender, fundus is firm and U -2, extremities have trace edema but no calf tenderness Discharge Data Studies Completed and Pending Pending at discharge Category Date Time Status Chlamydia/Gonorrh RNA,TMA URO Stat Lab 02/24/23 05:45 Received Laboratory Results WBC 10.35 10^3/uL (3.29-11.43) 02/24/23 16:39 RBC 2.99 10^6/uL (3.85-5.65) L 02/24/23 16:39 Hgb 6.90 g/dL (11.27-16.99) L 02/24/23 16:39 Hct 23.1 % (36-47) L 02/24/23 16:39 MCV 77.3 fl (85-98) L 02/24/23 16:39 MCH 23.1 pg (27-33) L 02/24/23 16:39 MCHC 29.9 g/dL (30-55) L 02/24/23 16:39 RDW 17.2 % (12.1-15.1) H 02/24/23 16:39 Plt Count 174 10^3/cmm (157-399) 02/24/23 16:39 MPV 10.8 fL (7.4-10.4) H 02/24/23 16:39 Estimat Average Glucose 137 02/24/23 05:51 Hemoglobin A1c 6.4 % (4.0-6.0) H 02/24/23 05:51 Urine Opiates Screen Negative ng/mL (Negative) 02/24/23 05:45 Ur Barbiturates Screen Negative ng/mL (Negative) 02/24/23 05:45 Ur Phencyclidine Scrn Negative ng/mL (Negative) 02/24/23 05:45 Ur Amphetamines Screen Negative ng/mL (Negative) 02/24/23 05:45 U Benzodiazepines Scrn Negative ng/mL (Negative) 02/24/23 05:45 Urine Cocaine Screen Negative ng/mL (Negative) 02/24/23 05:45 U Marijuana (THC) Screen Negative ng/mL (Negative) 02/24/23 05:45 RPR Nonreactive (Nonreactive) 02/24/23 05:51 Hep Bs Antigen Non-reactive (Nonreactive) 02/24/23 05:51 HIV 1&2 Ab & HIV 1 Ag Non-reactive (Non-Reactiv) 02/24/23 05:51 HIV 1&2 Antibody Non-reactive (Non-Reactiv) 02/24/23 05:51 Rubella IgG Antibody 35.7 IU/mL (0.0-10.0) H 02/24/23 05:51 Blood Type O Positive 02/24/23 05:51 Rho(D) Type Positive 02/24/23 05:51 Antibody Screen Negative 02/24/23 05:51 Vitals Last Vital Signs Temp 97.9 F 02/24/23 21:00 Pulse 92 02/24/23 21:00 Resp 16 02/24/23 21:00 BP 127/79 02/24/23 21:00 Pulse Ox 99 02/24/23 21:00 O2 Del Method Room Air 02/24/23 21:00 Discharge Plan Discharge Patient Disposition: Home Condition: Stable Prescriptions: New docusate sodium 100 mg Capsule 100 mg PO BID Qty: 60 0RF ferrous sulfate 325 mg (65 mg iron) tablet,delayed release (DR/EC) 325 mg PO BID Qty: 60 0RF Continued trazodone 50 mg tablet 100 mg PO .HS PRN (Reason: insomnia) Qty: 60 1RF Rx Instructions: Take 1-2 tabs at night for insomnia and depression. (DME) Blood Glucose Test Strip See Rx Instructions .Route Qty: 120 4RF Rx Instructions: As directed (DME) blood-glucose meter [Blood Glucose Monitoring] Kit See Rx Instructions .Route Qty: 1 4RF Rx Instructions: As directed (DME) E-Z Ject Lancets 32 gauge misc See Rx Instructions .Route Qty: 120 4RF Rx Instructions: As directed hydrocortisone 2.5 % cream 1 applic topical BID PRN (Reason: skin irritation) Qty: 28.35 0RF Discharge Orders: Discharge Order (Routine); Ordered 02/25/23 Ordered By: Fabi Cano Referrals: Fabi Cano MD [Physician] - 03/10/23 10:10 am Discharge Diet: Usual diet Discharge Activity: Limit activity as instructed Patient Instructions: Depression (DC), Bleeding (DC), Preeclampsia and Eclampsia After Delivery (GEN), Hemorrhage (DC), OB Discharge Report, OB Food/Drug Interaction Guide, OB Care at Home, Opioid Safety, OB Home Care, OB Vaginal Deliveries Activity Restrictions/Additional Instructions: Nothing in the vagina for 6 weeks. Discharge Attestations Time Spent in Discharge Care*: greater than 30 min Quality Metrics Clinical Quality Measures [ No reported AMI, CVA or VTE this stay] Coding Level of Care Code Acute Code for Chg Fwd Diagnoses (normal spontaneous vaginal delivery) O80 No care in current in third trimester O09.33 Anemia D64.9 History of gestational diabetes in prior , currently O09.299; Z86.32 Morbid obesity with BMI of 40.0-44.9, adult E66.01; Z68.41 Learning disability F81.9
[2023-02-25] MEDS: acetaminophen 325 mg Tablet 650 MG PO (13:17)
[2023-02-25] MEDS: medroxyprogesterone 150 mg/ml SDV 1 mL IM (13:23)
[2023-02-25 13:27] VITALS: BP 145/84; PULSE 70; RESP 16; TEMP 36.4
[2023-02-25 16:03] LABS: Chlamydia Trachomatis RNA TMA NOT DETECTED (NOT DETECTED); Neisseria Gonorrhoeae RNA, TMA NOT DETECTED (NOT DETECTED)
== END 2023-02-25 13:50 | disposition home or self-care (01) | DRG 807 ==
LOC: ER 03:53 → OBGYN 04:09
PROVIDERS: Family Medicine; Admitting Provider Family Medicine; Emergency Provider Emergency Medicine; PCP Family Medicine; Visit Provider Family Medicine
DX: O80 Encounter for full-term uncomplicated delivery (principal); Z37.0 Single live birth; Z3A.00 Weeks of gestation of pregnancy not specified; Z86.32 Personal history of gestational diabetes
CPT/HCPCS: 36415; 59025; 59409; 80306; 83036; 85027; 86592; 86762; 86850; 86900; 87340; 87491; 87591; 87806; 96372; 99211; J1050; J2590; J7121

== ENCOUNTER 2023-02-26 22:27 | Emergency (ER) | payer MEDICARE, MEDICAID, SELFPAY ==
[2023-02-26 22:33] VITALS: BP 144/95; PULSE 88; RESP 14; TEMP 36.7; O2SAT 99; BMI 38.5
[2023-02-26 23:25] LABS: Basophils % 0.2 %; Eosinophils # 0.1 10^3/uL (0.0-0.8); Eosinophils % 0.7 %; Hematocrit 26.3 % (36-47); Lymphocytes # 1.8 10^3/uL (0.8-4.8); Mean Corpuscular HGB Conc 28.9 g/dL (30-55); Mean Corpuscular Hemoglobin 22.4 pg (27-33); Mean Corpuscular Volume 77.6 fl (85-98); Mean Platelet Volume 9.4 fL (7.4-10.4); Monocytes # 0.5 10^3/uL (0.2-0.9); Monocytes % 5.7 %; Neutrophils # 6.48 10^3/uL (1.8-7.7); Neutrophils % 72.8 %; Nucleated Red Blood Cells % 0.2 %; Platelet Count 212 10^3/cmm (157-399); Red Blood Count 3.39 10^6/uL (3.85-5.65); Red Cell Distribution Width 17.6 % (12.1-15.1)
[2023-02-26 23:53] LABS: Alanine Aminotransferase 10 U/L (0-33); Albumin Level 3.4 g/dL (3.5-5.2); Alkaline Phosphatase 116 U/L (35-105); Anion Gap 14.1 (5-19); Aspartate Amino Transferase 12 U/L (0-32); Blood Urea Nitrogen 8 mg/dL (6-20); Calcium 8.8 mg/dL (8.5-10.5); Carbon Dioxide 24 mmol/L (22-29); Chloride 104 mmol/L (98-107); Globulin 2.7 g/dL (1.3-4.6); Glomerular Filtration Rate 87.4 mL/min (90-130); Glucose 126 mg/dL (65-115); Osmolality Calculated 286 mOsm/kg (285-295); Potassium 4.1 mmol/L (3.5-5.1); Sodium 138 mmol/L (136-145); Total Bilirubin 0.3 mg/dL (0.15-1.2); Total Protein 6.1 g/dL (6.6-8.7)
== END 2023-02-27 00:57 | disposition left against medical advice (07) ==
PROVIDERS: Emergency Medicine; Emergency Provider Family Medicine; PCP Family Medicine
DX: Z53.21 Procedure and treatment not carried out due to patient leaving prior to being seen by health care provider (principal)
CPT/HCPCS: 36415; 80053; 85025; 99283